=== PATIENT | male | born 1990 ===

== ENCOUNTER 2016-07-20 09:22 | Emergency (ER) | payer BC ==
[2016-07-20 09:30] VITALS: BP 137/87; PULSE 90; RESP 18; TEMP 98.1; O2SAT 98
--- NOTE | 2016-07-20 09:57 | C.PDOC ---
History Of Present Illness 25 y/o male presents to the ED complaining of chest pain for six months, worse for one week. 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 Patient denies fever, chills, shortness of breath, cough , nausea, vomiting, diaphoresis, or other complaints. Time Seen by Provider: 07/20/16 09:35 Chief Complaint (Nursing): Chest Pain History Per: Patient History/Exam Limitations: no limitations Onset/Duration Of Symptoms: Days (6 months), Gradual, Persistent, Worse Since ( 7 days) Current Symptoms Are (Timing): Still Present Quality: Pressure Exacerbating Factors: Movement Recent travel outside of the [place]: No Past Medical History Reviewed: Historical Data, Nursing Documentation, Vital Signs Vital Signs: Last Vital Signs Temp 98.1 F 07/20/16 09:27 Pulse 90 07/20/16 09:27 Resp 18 07/20/16 09:27 BP 137/87 07/20/16 09:27 Pulse Ox 98 07/20/16 09:57 - Medical History PMH: No Chronic Diseases Surgical History: No Surg Hx Family History: States: Unknown Family Hx - Social History Hx Tobacco Use: No Hx Alcohol Use: No Hx Substance Use: No - Immunization History Hx Tetanus Toxoid Vaccination: No Hx Influenza Vaccination: No Hx Pneumococcal Vaccination: No Review Of Systems Except As Marked, All Systems Reviewed And Found Negative. Constitutional: Negative for: Fever, Chills, Sweats Cardiovascular: Positive for: Chest Pain Respiratory: Negative for: Cough, Shortness of Breath Gastrointestinal: Negative for: Nausea, Vomiting Physical Exam - Physical Exam Appears: Non-toxic, No Acute Distress Skin: Normal Color, Warm, Dry, No Rash Head: Atraumatic, Normacephalic Neck: Normal ROM, Supple Chest: Symmetrical, Tenderness (mild left upper chest discomfort with palpation) , Other (positionally reproducible pain) Cardiovascular: Rhythm Regular Respiratory: Normal Breath Sounds, No Rales, No Rhonchi, No Wheezing Gastrointestinal/Abdominal: Normal Exam, Soft, No Tenderness Extremity: Normal ROM, No Swelling Neurological/Psych: Oriented x3, Normal Speech, Normal Cognition ED Course And Treatment ECG: Interpreted By Me ECG Rhythm: Sinus Rhythm ECG Interpretation: Normal Rate From EC (bpm) O2 Sat by Pulse Oximetry: 98 (ra) Pulse Ox Interpretation: Normal Medical Decision Making Medical Decision Making: Plan: * EKG positionally reproducable discomfort L upper chest ? costochondritis Excellent exercise tolerance LOW susp of ACS GERD? Disposition Doctor Will See Patient In The: Office Counseled Patient/Family Regarding: Studies Performed, Diagnosis - Disposition Referrals: Gómez Bermudez Jr., MD [Staff Provider] - Disposition: HOME/ ROUTINE Disposition Time: 09:57 Condition: GOOD Instructions: Costochondritis (ED) Forms: Work Excuse Print Language: MALDIVIAN - Clinical Impression Clinical Impression: Chest discomfort - Scribe Statement The provider has reviewed the documentation as recorded by the Scribe (Kemi Koch) Provider Attestation: All medical record entries made by the Scribe were at my direction and personally dictated by me. I have reviewed the chart and agree that the record accurately reflects my personal performance of the history, physical exam, medical decision making, and the department course for this patient. I have also personally directed, reviewed, and agree with the discharge instructions and disposition.
--- NOTE | 2016-07-21 11:51 | CARD ---
APPROVED REPORT EKG Measurement Heart [id number] <Conclusion> Normal sinus rhythm Normal ECG
== END 2016-07-20 10:19 | disposition home or self-care (01) ==
LOC: C.ER 09:22
DX: R07.89 Other chest pain (principal)